=== PATIENT | male | born 1945 | race Caucasian/White ===

== ENCOUNTER 2024-04-22 11:04 | Emergency (ER) | payer OTHER ==
[~2024-04-22] VITALS: Ht 182.9 cm; Wt 96.2 kg
[~2024-04-22 11:04] MED LIST: ALEVE220 MG PO; ATENOLOL100 MG PO; CITALOPRAM HBR40 MG PO; DILTIAZEM 24HR120 MG PO; DOK250 MG PO; ELIQUIS5 MG PO; FLOMAX0.4 MG PO; HYDROMORPHONE HC4 MG PO; LIPITOR40 MG PO; LOVENOX100 MG/1 M SUB-Q; MILK OF MA400 MG/5 M PO; MULTIVITAMINS1 EAC7 PO; OMEPRAZOLE20 MG PO; OXYCODONE HCL5 MG PO; XARELTO10 MG PO
[2024-04-22 14:05] VITALS: BP 117/84
== END 2024-04-22 14:05 | disposition short-term general hospital (02) ==
LOC: ED 11:04
DX: H33.21 Serous retinal detachment, right eye (principal); I10 Essential (primary) hypertension; I48.91 Unspecified atrial fibrillation; Z79.01 Long term (current) use of anticoagulants; Z79.899 Other long term (current) drug therapy
CPT/HCPCS: 99284